=== PATIENT | male | born 2000 | race Hispanic/Latino ===

== ENCOUNTER 2021-05-17 21:24 | Emergency (ER) | payer MEDICAID, SELFPAY ==
[2021-05-17 21:25] VITALS: BP 127/87; PULSE 101; RESP 16; TEMP 36.9; O2SAT 99; BMI 24.7
--- NOTE | 2021-05-17 21:34 | ED.RN ---
C-COLLAR PLACED ON ARRIVAL TO ED.
--- NOTE | 2021-05-17 21:50 | ED.RN ---
Pt originally denies SI in triage, but when registration was in the room pt refuses to give them his phone number or address and then asks what hospital do you go to when you're suicidal Then states ok I'm suicidal, i want to cut my wrists Dr burr made aware.
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
--- NOTE | 2021-05-17 22:00 | ED.RN ---
suicide precautions initiated. pt belongs removed and room cleared out per policy.
[2021-05-17 22:06] LABS: Absolute Neutrophil Count 3.3 X10^3/uL (2.0-7.7); Basophil# 0.01 X10^3/uL; Basophil% 0.2 % (0-1); Eosinophil# 0.05 X10^3/uL; Hematocrit 45.7 % (40-54); Hemoglobin 16.1 g/dL (13.0-16.5); Lymphocyte % 24.7 % (19-41); Mean Corp Hgb Conc 35.2 g/dL (32-36); Mean Corpuscular Hgb 31.9 pg (27.0-32.0); Mean Corpuscular Volume 90.7 fL (80-94); Mean Platelet Vol. 10.6 fl (6.2-12.0); Monocyte# 0.56 X10^3/uL; Monocyte% 10.6 % (0-10); NRBC Flagged by Analyzer 0 % (0-5); Neutrophil # 3.33 X10^3/uL (2.7-7.7); Neutrophil % 63.3 % (47-70); Platelet Count 229 K/mm3 (150-450); RBC Distribution Width CV 11.3 % (11.6-14.6); RBC Distribution Width SD 37.8 fl (35.1-43.9); Red Blood Count 5.04 M/mm3 (4.6-6.2); White Blood Count 5.3 K/mm3 (4.4-11.0)
[2021-05-17 22:14] LABS: Alcohol, Blood (Medical)-Serum < 3.0 mg/dL
[2021-05-17 22:15] LABS: Anion Gap 5 (5-15); BUN 14 mg/dL (7-18); BUN/Creat Ratio 10.8 RATIO (10-20); Calcium,Total 9.5 mg/dL (8.5-10.1); Chloride 104 mmol/L (98-107); EST Glomerular Filtration Rate 75 mL/min (>60); Est Glom Filt Rate - Afr Amer 91 mL/min (>60); Glucose 123 mg/dL (74-106); Potassium 3.8 mmol/L (3.5-5.1); Sodium Level 139 mmol/L (136-145)
--- NOTE | 2021-05-17 22:25 | CT_ITS ---
STUDY: CT CERVICAL SPINE WITHOUT CONTRAST REASON FOR EXAM: Male, 20 years old. Injury/pain RADIATION DOSAGE (If Supplied By Facility): CTDIvol = ( 16.63 ) mGy, DLP = ( 406.12 ) mGycm TECHNIQUE: High resolution transaxial imaging was performed without contrast material. Sagittal and coronal images were reconstructed. Individualized dose optimization techniques were used for this CT. COMPARISON: None FINDINGS: Normal craniovertebral junction. Normal anterior atlantoaxial articulation. Normal odontoid process. Normal cervical lordosis. No visualized acute fracture or compression deformity or jumped facets. Normal endplates. Normal disc height and morphology. Normal central canal and intervertebral neuroforamina. Normal visualized soft tissue structures. CT/Spine Cervical without Contras IMPRESSION: Negative unenhanced CT examination of the cervical spine. Electronically Signed: Sujit Gibbons MD at 22:53 EST ,
[2021-05-17 23:09] LABS: Amphetamine Urine VISTA POSITIVE (<1000 ng/mL); Barbiturate Urine VISTA NEGATIVE (< 200 ng/mL); Benzodiazepine Urine VISTA NEGATIVE (< 200 ng/mL); Cocaine Urine VISTA NEGATIVE (< 300 ng/mL); Ecstacy Urine VISTA NEGATIVE (< 500 ng/mL); Methadone Urine VISTA NEGATIVE (< 300 ng/mL); PCP Urine VISTA NEGATIVE (< 25 ng/mL); THC Urine VISTA POSITIVE (< 50 ng/mL); Vista UDS pH Range 7
--- NOTE | 2021-05-17 23:24 | ED.RN ---
CALLED [facility] AND FAXED ALL PAPERWORK OVER
[2021-05-18 01:00] VITALS: BP 122/77; PULSE 89; RESP 16; O2SAT 99
--- NOTE | 2021-05-18 01:16 | ED.RN ---
Pt and friend unable to obtain ride back to [place], they are not equipt with winter clothing, they state they can get a ride in the morning. They are told they can sleep here until morning.
== END 2021-05-18 01:17 | disposition home or self-care (01) ==
PROVIDERS: Emergency Provider Emergency Medicine; Visit Provider Emergency Medicine
DX: S16.1XXA Strain of muscle, fascia and tendon at neck level, initial encounter (principal); V47.6XXA Car passenger injured in collision with fixed or stationary object in traffic accident, initial encounter; F32.A Depression, unspecified; F41.9 Anxiety disorder, unspecified; R45.851 Suicidal ideations; F17.210 Nicotine dependence, cigarettes, uncomplicated
CPT/HCPCS: 72125; 80048; 80307; 82077; 85025; 87426; 99285; A4216